=== PATIENT | female | born 1990 | race Caucasian/White ===

== ENCOUNTER 2016-12-24 18:03 | Emergency (ER) | payer SELFPAY ==
--- NOTE | 2016-12-24 18:34 | EDM.PDOC ---
ED HPI GENERAL MEDICAL PROBLEM - General Chief Complaint: Flank Pain Stated Complaint: Flank pain Time Seen by Provider: 12/24/16 18:20 Source of Information: Reports: Patient, RN Notes Reviewed History Limitations: Reports: No Limitations - History of Present Illness INITIAL COMMENTS - FREE TEXT/NARRATIVE: 26 year old female presents to the ED via [facility] due to concerns of kidney infection. She reports right flank pain rated 5/10. The symptoms have been present for about 24 hours. She denies burning, frequency or urgency with urination. She has a history of frequent kidney infections. She reports generalized malaise and not feeling well. She also reports nausea and heartburn symptoms. No diarrhea or abdominal pain. She has had a total hystorectomy. She is homeless. She says she is from [place] and is traveling to [place] with her boyfriend and cat, who are present with her today. They are hitchhiking. She admits to drinking about 4 beers today. She drinks alcohol daily. She admits to using marijuana when available but no other drug use. Right Lower Flank Pain Score (Numeric/FACES): 5 - Related Data Allergies Allergy/AdvReac Type Severity Reaction Status Date / Time No Known Allergies Allergy Verified 12/24/16 18:15 Home Meds: Home Meds Ciprofloxacin [IJD: Ciprofloxacin HCl] 500 mg PO BID #10 tab 12/24/16 [Rx] Past Medical History - Past Health History Medical/Surgical History: Denies Medical/Surgical History Social & Family History - Family History Family Medical History: Noncontributory - Tobacco Use Smoking Status *Q: Current Every Day Smoker Years of Tobacco use: 12 Packs/Tins Daily: 1 Used Tobacco, but Quit: No Second Hand Smoke Exposure: Yes - Caffeine Use Caffeine Use: Reports: None - Alcohol Use Days Per Week of Alcohol Use: 7 Number of Drinks Per Day: 6 Total Drinks Per Week: 42 Date of Last Drink: 12/24/16 Time of Last Drink: 17:30 - Recreational Drug Use Recreational Drug Use: Yes Drug Use in Last 12 Months: Yes Recreational Drug Type: Reports: Marijuana/Hashish ED ROS GENERAL - Review of Systems Review Of Systems: See Below Constitutional: Reports: Chills, Malaise, Weakness, Fatigue. Denies: Fever Respiratory: Reports: No Symptoms. Denies: Shortness of Breath, Cough Cardiovascular: Reports: No Symptoms. Denies: Chest Pain GI/Abdominal: Reports: Nausea. Denies: Abdominal Pain, Constipation, Diarrhea, Vomiting : Reports: Flank Pain. Denies: Dysuria, Frequency, Urgency ED EXAM, RENAL/ - Physical Exam Exam: See Below Exam Limited By: No Limitations General Appearance: Alert, No Apparent Distress, Anxious, Other (intoxicated, poor hygeine, smells of bonfire. Clothes and skin are very dirty. ) Eye Exam: Bilateral Eye: EOMI, PERRL Respiratory/Chest: No Respiratory Distress, Lungs Clear, Normal Breath Sounds Cardiovascular: Normal Peripheral Pulses, Regular Rate, Rhythm, No Murmur GI/Abdominal: Normal Bowel Sounds, Soft, Non-Tender Back Exam: Normal Inspection, Full Range of Motion. No: CVA Tenderness (L), CVA Tenderness (R) Skin Exam: Warm, Dry, Intact Course - Vital Signs Last Recorded V/S: Last Vital Signs Temp 97.7 F 12/24/16 19:38 Pulse 102 H 12/24/16 19:38 Resp 15 12/24/16 19:38 BP 99/60 12/24/16 19:38 Pulse Ox 98 12/24/16 19:38 - Orders/Labs/Meds Orders: Active Orders 24 hr Category Date Time Status CULTURE URINE [RM] Stat Lab 12/24/16 19:20 Received Labs: Laboratory Tests 12/24/16 12/24/16 12/24/16 Range/Units 19:20 19:20 19:50 WBC 11.70 H (3.98-10.04) K/mm3 RBC 4.45 (3.98-5.22) M/mm3 Hgb 14.4 (11.2-15.7) gm/L Hct 43.1 (34.1-44.9) % MCV 96.9 H (79.4-94.8) fl MCH 32.4 H (25.6-32.2) pg MCHC 33.4 (32.2-35.5) g/dl RDW Std Deviation 43.1 (36.4-46.3) fL Plt Count 256 (182-369) K/mm3 MPV 11.0 (9.4-12.3) fl Neutrophils % (Manual) 69 H (40-60) % Band Neutrophils % 1 (0-10) % Lymphocytes % (Manual) 24 (20-40) % Atypical Lymphs % 0 % Monocytes % (Manual) 4 (2-10) % Eosinophils % (Manual) 0 L (0.7-5.8) % Basophils % (Manual) 2 H (0.1-1.2) Platelet Estimate Adequate Plt Morphology Comment Normal RBC Morph Comment Normal Sodium (136-145) mEq/L Potassium (3.5-5.1) mEq/L Chloride (98-107) mEq/L Carbon Dioxide (21-32) mEq/L Anion Gap (5-15) BUN (7-18) mg/dL Creatinine (0.55-1.02) mg/dL Est Cr Clr Drug Dosing mL/min Estimated GFR (MDRD) (>60) mL/min BUN/Creatinine Ratio (14-18) Glucose (74-106) mg/dL Calcium (8.5-10.1) mg/dL Total Bilirubin (0.2-1.0) mg/dL AST (15-37) U/L ALT (14-59) U/L Alkaline Phosphatase (46-116) U/L C-Reactive Protein (<1.0) mg/dL Total Protein (6.4-8.2) g/dl Albumin (3.4-5.0) g/dl Globulin gm/dL Albumin/Globulin Ratio (1-2) Urine Color Light yellow (Yellow) Urine Appearance Slt cloudy H (Clear) Urine pH 6.0 (5.0-8.0) Ur Specific [place] 1.025 (1.005-1.030) Urine Protein Negative (Negative) Urine Glucose (UA) Negative (Negative) Urine Ketones Negative (Negative) Urine Occult Blood Negative (Negative) Urine Nitrite Negative (Negative) Urine Bilirubin Negative (Negative) Urine Urobilinogen 0.2 (0.2-1.0) Ur Leukocyte Esterase 1+ H (Negative) Urine RBC 0-5 (0-5) /hpf Urine WBC 5-10 H (0-5) /hpf Ur Epithelial Cells 20-30 H (0-5) /hpf Urine Bacteria Many H (FEW) /hpf Urine Mucus Not seen (FEW) /hpf Urine HCG, Qual Negative (NEGATIVE) Ethyl Alcohol (0.00) gm% 12/24/16 12/24/16 Range/Units 19:50 19:50 WBC (3.98-10.04) K/mm3 RBC (3.98-5.22) M/mm3 Hgb (11.2-15.7) gm/L Hct (34.1-44.9) % MCV (79.4-94.8) fl MCH (25.6-32.2) pg MCHC (32.2-35.5) g/dl RDW Std Deviation (36.4-46.3) fL Plt Count (182-369) K/mm3 MPV (9.4-12.3) fl Neutrophils % (Manual) (40-60) % Band Neutrophils % (0-10) % Lymphocytes % (Manual) (20-40) % Atypical Lymphs % % Monocytes % (Manual) (2-10) % Eosinophils % (Manual) (0.7-5.8) % Basophils % (Manual) (0.1-1.2) Platelet Estimate Plt Morphology Comment RBC Morph Comment Sodium 143 (136-145) mEq/L Potassium 4.0 (3.5-5.1) mEq/L Chloride 106 (98-107) mEq/L Carbon Dioxide 24 (21-32) mEq/L Anion Gap 17.0 H (5-15) BUN 10 (7-18) mg/dL Creatinine 0.8 (0.55-1.02) mg/dL Est Cr Clr Drug Dosing 103.63 mL/min Estimated GFR (MDRD) > 60 (>60) mL/min BUN/Creatinine Ratio 12.5 L (14-18) Glucose 88 (74-106) mg/dL Calcium 8.5 (8.5-10.1) mg/dL Total Bilirubin 0.2 (0.2-1.0) mg/dL AST 24 (15-37) U/L ALT 28 (14-59) U/L Alkaline Phosphatase 74 (46-116) U/L C-Reactive Protein < 0.2 (<1.0) mg/dL Total Protein 8.1 (6.4-8.2) g/dl Albumin 4.2 (3.4-5.0) g/dl Globulin 3.9 gm/dL Albumin/Globulin Ratio 1.1 (1-2) Urine Color (Yellow) Urine Appearance (Clear) Urine pH (5.0-8.0) Ur Specific Stafford (1.005-1.030) Urine Protein (Negative) Urine Glucose (UA) (Negative) Urine Ketones (Negative) Urine Occult Blood (Negative) Urine Nitrite (Negative) Urine Bilirubin (Negative) Urine Urobilinogen (0.2-1.0) Ur Leukocyte Esterase (Negative) Urine RBC (0-5) /hpf Urine WBC (0-5) /hpf Ur Epithelial Cells (0-5) /hpf Urine Bacteria (FEW) /hpf Urine Mucus (FEW) /hpf Urine HCG, Qual (NEGATIVE) Ethyl Alcohol 0.21 (0.00) gm% Meds: Medications Discontinued Medications Generic Name Dose Route Start Last Admin Trade Name Freq PRN Reason Stop Dose Admin Levofloxacin 500 mg 12/24/16 21:29 Levaquin PO 12/24/16 21:30 ONETIME ONE Ondansetron HCl 4 mg 12/24/16 19:53 12/24/16 20:01 Zofran Odt PO 12/24/16 19:54 4 mg ONETIME ONE Administration Ranitidine HCl 150 mg 12/24/16 20:30 Zantac PO BID CARLOS Ranitidine HCl 150 mg 12/24/16 20:23 12/24/16 20:31 Zantac PO 12/24/16 20:24 150 mg ONETIME ONE Administration Ranitidine HCl Confirm 12/24/16 20:38 12/24/16 20:59 Zantac Administered 12/24/16 20:39 Not Given Dose 150 mg .ROUTE .STK-MED ONE - Re-Assessments/Exams Free Text/Narrative Re-Assessment/Exam: CBC reveals WBC of 11.7 with no shift. CRP is WNL. CMP is essentially normal. UA is positive for 1+ leukocytes, WBC 5-10, epithelials 20-30s. ETOH is 0.21 Patient was able to tolerate PO fluids so IV was not placed. Due to the fact that the patient is homeless and follow-up is a concern, I am going to start her on antibiotic. She will get the first dose here tonight. She says she has money to get the Rx filled tomorrow. Discharge instructions as documented. Departure - Departure Time of Disposition: 21:28 Disposition: Home, Self-Care 01 Condition: Good Clinical Impression: UTI (urinary tract infection) Qualifiers: Urinary tract infection type: acute cystitis Hematuria presence: without hematuria Qualified Code(s): N30.00 - Acute cystitis without hematuria - Discharge Information Prescriptions: Ciprofloxacin [IJD: Ciprofloxacin HCl] 500 mg PO BID #10 tab Instructions: Urinary Tract Infection, Adult Referrals: PCP,None [Primary Care Provider] - Forms: ED Department Discharge Additional Instructions: Drink plenty of water Tylenol or Ibuprofen as needed for pain Ciprofloxacin 500mg twice a day for 5 days Return to nearest ER with any new or worsening symptoms - My Orders Last 24 Hours: My Active Orders 12/24/16 19:20 CULTURE URINE [RM] Stat - Assessment/Plan Last 24 Hours: My Active Orders 12/24/16 19:20 CULTURE URINE [RM] Stat
[2016-12-24] MEDS ORDERED: Ondansetron 4 MG Tab.DIS PO ONE (19:53)
[2016-12-24] MEDS ORDERED: Ranitidine 15 MG/ML Syrup 10 ML UD Cup PO ONE (20:23)
[2016-12-24] MEDS ORDERED: Ranitidine 15 MG/ML Syrup 10 ML UD Cup PO SCH (20:30)
[2016-12-24] MEDS ORDERED: Ranitidine 15 MG/ML Syrup 10 ML UD Cup ONE (20:38)
[2016-12-24] MEDS ORDERED: Levofloxacin 500 MG Tab PO ONE (21:29)
== END 2016-12-24 21:40 | disposition home or self-care (01) ==
LOC: JD.ED 18:03
DX: N30.00 Acute cystitis without hematuria (principal); F17.210 Nicotine dependence, cigarettes, uncomplicated
CPT/HCPCS: 36415; 80053; 81001; 81025; 85025; 86140; 87086; 99285; A9270; G0480; 99284